=== PATIENT | female | born 1960 | race Caucasian/White ===

== ENCOUNTER 2018-01-08 07:28 | Day surgery (SDC) | payer BC ==
--- NOTE | 2018-01-08 06:20 | History and Physical Report ---
DATE: 01/08/2018. CHIEF COMPLAINT AND HISTORY OF CHIEF COMPLAINT: This patient presents with a history of an intractable lumbar radiculopathy. Due to the failure of therapy, a spinal cord stimulator trial was conducted on 12/05/2017 with 75 to 85 percent pain control. Due to the failure of all therapy and the success of the trial, she presents today for implantation of a permanent system. PAST MEDICAL HISTORY: Noncontributory. PAST SURGICAL HISTORY: Hip replacement, section, gallbladder surgery, tubal ligation. MEDICATIONS ON ADMISSION: To be provided. ALLERGIES: Penicillin. SOCIAL HISTORY: Caffeine. FAMILY HISTORY: Coronary artery disease, hypertension. REVIEW OF SYSTEMS: The patient seems appropriate and in no acute distress. The remainder of the systems review shows glasses, headaches, sleep disturbance , chronic bronchitis, cardiac arrhythmia, degenerative arthritis, fibromyalgia, depression, difficulty sleeping. PHYSICAL EXAMINATION: General: Height and weight unavailable. Vital Signs: Not available. HEENT: Within normal limits. Lungs: Clear. Heart: Regular rate and rhythm. Abdomen: Nontender. Musculoskeletal: Examination of the musculoskeletal system shows diffuse tenderness throughout the lumbar spine. Range of motion seems to produce pain into both lower extremities. There currently are no motor or sensory field abnormalities in the extremities. Sensory henry are intact. Neurologic: Cranial nerves are intact. IMPRESSION: LUMBAR RADICULOPATHY, ICD-10 CODE M54.16 AND M54.17. PLAN: The patient is here for implantation of a permanent spinal cord stimulator after a successful trial. The potential risks, side effects, and complications have all been carefully reviewed and discussed. The patient understands and has consented. Information from the docketing specialist as well as direct contact with a clinical specialist of the company was provided. The procedure will be considered outpatient, although an overnight stay will be evaluated. JOB NUMBER: [id number] cc: Beny Mccall
[~2018-01-08 07:28] MED LIST: ACETAMINOPHEN 1,000 MG/100 ML BTL IV ONE; CLINDAMYCIN 600MG/50ML PREMIX 600 MG/50 ML BAG IVPB ONE; FAMOTIDINE 20MG TABLET PO ONE; MECLIZINE 25 MG TABLET PO ONE; METOCLOPRAMIDE 10 MG TABLET PO ONE
[2018-01-08] MEDS ORDERED: BUPIVACAINE 0.5% W/EPI MPF 30 ML VIAL IVP ONE (07:29)
[2018-01-08] MEDS ORDERED: LIDOCAINE 2% MDV (20MG/ML) 20ML VIAL IV ONE (07:29)
[2018-01-08] MEDS ORDERED: FLUMAZENIL 1MG/10ML VIAL IV ONE (07:29)
[2018-01-08] MEDS ORDERED: FENTANYL PF 100MCG/2ML VIAL IV ONE (07:29)
[2018-01-08] MEDS ORDERED: LIDOCAINE 1% W/EPI 1:200,000 MPF 30ML SQ ONE (07:29)
[2018-01-08] MEDS ORDERED: MIDAZOLAM HCL 2MG/2ML VIAL IV ONE (07:29)
[2018-01-08] MEDS ORDERED: PROPOFOL 10 MG/ML VIAL IV ONE (07:29)
--- NOTE | 2018-01-09 16:10 | Operative Note - [place] ---
DATE OF SURGERY: 01/08/18 PREOPERATIVE DIAGNOSES: OPERATION: 1. FLUOROSCOPICALLY-GUIDED INCISION, SUBCUTANEOUS DISSECTION, AND REMOVAL OF TWO PERIPHERAL NERVE STIMULATORS WITH INTERNAL GENERATOR. 2. FLUOROSCOPICALLY-GUIDED EPIDURAL ACCESS LEFT 12-1 AND 11-12 WITH TWO SEPARATE CURVED AXIS EPIMED NEEDLES WITH [id number]. 3. AT 12-1, SPINAL CORD STIMULATOR LEAD 1, A [employer] 16 WITH 6 ELECTRODES POSITIONED LEFT T7. WITH THE EPIDURAL ACCESS LEFT AT 11-12, SPINAL CORD STIMULATOR LEAD 2, A [employer] 16 WITH 6 ELECTRODES POSITIONED RIGHT AT T7. 4. COMPLEX PROGRAMMING OF LEAD 1 OVER 20 MINUTES FOLLOWED BY COMPLEX PROGRAMMING OF LEAD 2 OVER 20 MINUTES. 5. INCISION, SUBCUTANEOUS DISSECTION, AND ANCHORING OF LEAD 1 AND LEAD 2 TO SUPRASPINOUS FASCIA USING A [employer] LOCKING ANCHOR AND NONABSORBABLE SUTURE. 6. REVISION OF LEFT POSTERIOR/SUPERIOR GLUTEAL POUCH. PLACEMENT OF GENERATOR IDENTIFIED A [employer] WAVEWRITER. 7. TUNNELING BETWEEN MIDLINE LEAD POUCHES AND GENERATOR POUCH, PLACEMENT OF EXTERNAL PORTION OF LEAD 1 AND LEAD 2 INTO GENERATOR POUCH. EACH LEAD INTERFACED TO GENERATOR. 8. PLACEMENT OF GENERATOR INTO POUCH SECURED TO POSTERIOR FASCIA WITH NONABSORBABLE SUTURE. PLACEMENT OF LEADS INTO POUCH. CLOSURE OF BOTH INCISIONS VICRYL FOR FASCIA, FAROOQ FOR SKIN. CLOSURE OF PERIPHERAL NERVE STIMULATOR SITES VICRYL FOR FASCIA, FAROOQ FOR SKIN. STERILE DRESSINGS PLACED. 9. COMPLEX RECOVERY ROOM PROGRAMMING INTERNAL GENERATOR, TWO LEADS, HOME USE, 20 MINUTES. SURGEON: CARROLL CANDELARIO D.O. ANESTHESIA: LOCAL SEDATION. ANESTHESIA PROVIDER: CONNER DESAI CRNA. INDICATION: This patient presents with a history of a intractable lumbar radiculopathy. With the failure of therapy and a peripheral nerve stimulator and generator in place, which is nonfunctional, she is here for implantation of two spinal cord stimulators after a successful trial and removal of the nonfunctional peripheral lead and generator. PROCEDURE: Intravenous line, vital sign monitoring, IV sedation, prepped and draped sterile technique. Under imaging, the two peripheral leads were identified approximately the 12-1 junction; one left and one right. Skin infiltrated, incision made, and subcutaneous dissection was conducted to the leads. The leads were removed intact. At the left posterior gluteal margin generator pouch, skin infiltrated, incision made, and subcutaneous dissection was conducted to the generator. The generator for the peripheral leads was removed intact along with the connections. Antibiotic for irrigation and Bovie for hemostasis. On the left at 11-12 and 12-, skin infiltrated then using two separate curved axis Epimed needles with [id number]. At 12-1, spinal cord stimulator lead 1, a [employer] 16 with 6 electrodes, was advanced positioned left of midline, T7. With the epidural access at 11-12, same technique, spinal cord stimulator lead 2, a [employer]ion 16 with 6 electrodes positioned right at T7. Lead 1 and lead 2 midline, paramedian at T7. Complex programming of lead over 20 minutes followed by complex programming of lead 2 over 20 minutes resulting in complete patterns of stimulation across the back and into the legs; patient indicating we had all of the areas of the pain. She was given the option to implant or continue to program; she opted to implant. Questions repeated with the same response. The skin below both needles infiltrated, incision made, and subcutaneous dissection was conducted to the supraspinous fascia. Each of the needles was removed and the leads were anchored to the supraspinous fascia with a [email or web address] [place] and nonabsorbable suture. At the left posterior gluteal margin generator pouch from the previous removal, though pouch was widened to accommodate the new generator identified as a [email or web address]chargeable WaveWriter. A tunneling tool was then used to carry the two leads into the generator pouch and then each lead was interfaced to the generator. Antibiotic irrigation and Bovie for hemostasis. The generator was placed into the pouch, secured to the fascia with a nonabsorbable suture. The leads were placed into their own pouch and then all incisions were closed Vicryl for fascia and farooq for skin including the peripheral stimulator lead sites. Sterile dressing was applied. She was transported to the Recovery Room, stable, no side-effects from the procedure or the sedation. When fully awake and alert, complex programming was then performed over 20 minutes in the Recovery Room re- establishing stimulation and pain control to all of the appropriate areas. She was requesting to go home. She will be monitored for the appropriate period and then discharged. DISCHARGE INSTRUCTIONS IN THE MORNIN. Sites will remain clean and dry. No showering or bathing in any way that would disrupt dressings. If it happens, contact the clinic. 2. Standard medications resumed including Levaquin, the antibiotic, 500 mg once a day for 14 days. 3. The office will contact the patient in the next 24-48 hours to set up an appointment in the office to evaluate the sites in 7-10 days. At that point, farooq were removed and she will be evaluated for increasing activities. All other instructions provided, numbers to contact, problems given. She was then discharged. cc: Dr. Celestin JOB NUMBER: [id number] MTDD
== END 2018-01-08 12:10 | disposition home or self-care (01) ==
LOC: SUR 07:28
PROVIDERS: ATTEND Pain Medicine Interventional Pain Medicine
DX: M54.16 Radiculopathy, lumbar region (principal); M54.17 Radiculopathy, lumbosacral region; R00.0 Tachycardia, unspecified; M79.7 Fibromyalgia; G47.33 Obstructive sleep apnea (adult) (pediatric)
CPT/HCPCS: 72020; 95972; C1820; C1883